=== PATIENT | male | born 1965 | race Caucasian/White ===

== ENCOUNTER 2018-04-22 16:32 | Emergency (ER) | payer OTHER ==
[2018-04-22] MEDS ORDERED: NORMAL SALINE 1000 ML 1,000 ML IV ONE (17:45)
--- NOTE | 2018-04-22 18:24 | ER Document Report ---
ED General - General Chief Complaint: Dizziness Stated Complaint: DIZZINESS/BLURRED VISION Time Seen by Provider: 04/22/18 18:11 TRAVEL OUTSIDE OF THE [place] IN LAST 30 DAYS: No - HPI Notes: 53-year-old male with history of hypertension presents with generalized weakness , lightheadedness, vomiting and diarrhea. Reports having symptoms intermittently since February since he went to [employer]. He believes he is getting heat exhaustion. He has frequent lightheadedness and dizziness. He was a [place] this weekend and symptoms have worsened. He has had 4 days of intermittent vomiting and diarrhea with abdominal cramping. Denies any blood in vomit or stools. Denies any fevers or chills. He has been having headaches and diffuse body aches and cramps. Denies chest pain or shortness of breath. He admits to drinking about 3 shots of vodka daily for the past 10-12 years. He does not check blood pressure at home and has been compliant with medications. No prior abdominal surgeries. He would reports decreased urination with dark urine. No blood in urine or pain with urination. - Related Data Allergies/Adverse Reactions: No Known Allergies Allergy (Verified 04/22/18 23:10) Past Medical History - Social History Smoking Status: Unknown if Ever Smoked Family History: Reviewed & Not Pertinent - Past Medical History Cardiac Medical History: Reports: Hx Hypertension Review of Systems - Review of Systems Notes: Constitutional: Negative for fever. Positive for fatigue and lightheadedness. HENT: Negative for sore throat. Eyes: Negative for visual changes. Cardiovascular: Negative for chest pain. Respiratory: Negative for shortness of breath. Gastrointestinal: Positive for abdominal pain, vomiting or diarrhea. Genitourinary: Negative for dysuria. Positive for decreased urination and dark urine. Musculoskeletal: Negative for back pain. Positive for diffuse abdominal cramping Skin: Negative for rash. Neurological: Positive for headaches, negative for focal weakness or numbness. 10 point ROS negative except as marked above and in HPI. Physical Exam - Vital signs Vitals: Temp Pulse Resp BP Pulse Ox 97.6 F 91 20 72/45 L 100 04/22/18 17:23 04/22/18 17:23 04/22/18 17:23 04/22/18 17:23 04/22/18 17:23 - Notes Notes: PHYSICAL EXAMINATION: GENERAL: Well-appearing, well-nourished and in no acute distress. HEAD: Atraumatic, normocephalic. EYES: Pupils equal round and reactive to light, extraocular movements intact, conjunctiva are normal. ENT: nares patent, oropharynx clear without exudates. Moist mucous membranes. NECK: Normal range of motion, supple without lymphadenopathy LUNGS: Breath sounds clear to auscultation bilaterally and equal. No wheezes rales or rhonchi. HEART: Regular rate and rhythm, no chest wall tenderness . Distant heart sounds ABDOMEN: Soft, mild diffuse abdominal tenderness, normoactive bowel sounds. No guarding, no rebound. No masses appreciated. EXTREMITIES: Normal range of motion, no pitting or edema. No cyanosis. NEUROLOGICAL: Cranial nerves grossly intact. Normal speech, normal gait. Normal sensory and motor exams. PSYCH: Normal mood, normal affect. SKIN: Warm, Dry, normal turgor, no rashes or lesions noted. Course - Re-evaluation Re-evalutation: 04/22/18 18:23 Patient arrived hypotensive, afebrile. No current suspicion for sepsis. Peaked T waves on EKG with first-degree AV block and nonspecific intraventricular conduction delay. Suspicious for acute kidney injury with electronic disturbances possibly from rhabdomyolysis. Labs sent. 04/22/18 20:56 Given Rocephin for leukocytosis with left shift and hypotension of unclear etiology. Cultures sent. Patient in acute renal renal failure with marked elevation in potassium. Immediately given calcium, insulin, glucose, bicarbonate, albuterol, Lasix. Still giving fluids. Immediately called [facility] for transfer. Initially requested hospitalist with nephrology consult for need for emergent dialysis. After about 20 minutes, I received a call back stating that the hospitalist will need me to speak to the electronic prepress system operator first. After about another 20 minutes I discussed with Dr. Arroyo, nephrology. He requested that I speak to the critical care team as patient may not require dialysis after giving medications despite Cr of 12. Repeat EKG does show narrowing of the QRS interval from 114 to 90 with decrease in the amplitude of the T waves. MS interval improving as well. Blood pressure marginal at 98/50 currently. Still getting second liter of fluids. He has vomited once. Still awaiting call from critical care team. 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 No ICU beds. Now on phone with [facility]. 04/22/18 21:23 Patient also accepted by , machine candle molder at [facility]. Awaiting for whichever bed is available first. Patient remains awake and alert with no complaints. Repeat BMP ordered. Lactic acid normal. 04/22/18 22:45 Labs improved. Blood pressure improved with Levophed. Still awaiting a bed. 04/23/18 00:30 Patient accepted at [facility]. Still awaiting transfer. Bedside ultrasound shows slight collapse of RV and IVC with inspiration so fourth liter of fluids ordered. Still on Levophed drip with borderline low blood pressure. - Vital Signs Vital signs: Temp Pulse Resp BP Pulse Ox 98 F 91 16 99/41 L 95 04/23/18 00:00 04/22/18 17:23 04/23/18 00:00 04/23/18 00:00 04/23/18 00:00 - Laboratory Result Diagrams: 04/22/18 17:43 04/22/18 21:30 Laboratory results interpreted by me: 04/22/18 04/22/18 04/22/18 17:43 17:43 21:30 WBC 14.0 H Hgb 17.5 H Hct 51.4 H MCV 104 H MCH 35.5 H RDW 14.1 H Seg Neutrophils % 80.0 H Lymphocytes % 5.3 L Monocytes % 14.3 H Absolute Neutrophils 11.2 H Absolute Monocytes 2.0 H Sodium 127.6 L 127.5 L Potassium 7.8 H* Chloride 82 L 88 L Carbon Dioxide 10 L* 14 L Anion Gap 36 H 26 H BUN 89 H 92 H Creatinine 12.59 H 10.34 H Est GFR ( Amer) 5 L 6 L Est GFR (Non-Af Amer) 4 L 5 L Glucose 127 H Calcium 7.1 L Magnesium 2.9 H Direct Bilirubin 0.7 H AST 61 H Total Protein 8.6 H Urine Protein Urine Glucose (UA) Urine Ketones Urine Blood 04/22/18 22:45 WBC Hgb Hct MCV MCH RDW Seg Neutrophils % Lymphocytes % Monocytes % Absolute Neutrophils Absolute Monocytes Sodium Potassium Chloride Carbon Dioxide Anion Gap BUN Creatinine Est GFR ( Amer) Est GFR (Non-Af Amer) Glucose Calcium Magnesium Direct Bilirubin AST Total Protein Urine Protein 30 H Urine Glucose (UA) 50 H Urine Ketones TRACE H Urine Blood SMALL H Critical Care Note - Critical Care Note Total time excluding time spent on procedures (mins): 60 - Critical care time spent obtaining history from patient or surrogate, discussions with consultants , development of treatment plan with patient or surrogate, evaluation of patient 's response to treatment, examination of patient, ordering and performing treatments and interventions, ordering and review of laboratory studies, re- evaluation of patient's condition, ordering and review of radiographic studies and review of old charts Discharge - Discharge Referrals: JAMILA SEXTON MD [ACTIVE STAFF] - Follow up as needed
--- NOTE | 2018-04-22 18:40 | RADIOLOGY REPORT (SQ) ---
EXAM DESCRIPTION: CHEST SINGLE VIEW COMPLETED DATE/TIME: 04/22/2018 6:22 pm REASON FOR STUDY: hypotension COMPARISON: None. EXAM PARAMETERS: NUMBER OF VIEWS: One view. TECHNIQUE: Single frontal radiographic view of the chest acquired. RADIATION DOSE: NA LIMITATIONS: None. FINDINGS: LUNGS AND PLEURA: No opacities, masses or pneumothorax. No pleural effusion. MEDIASTINUM AND HILAR STRUCTURES: No masses. Contour normal. HEART AND VASCULAR STRUCTURES: Heart normal in size. Normal vasculature. BONES: No acute findings. Old rib fractures. HARDWARE: None in the chest. OTHER: No other significant finding. IMPRESSION: NO ACUTE RADIOGRAPHIC FINDING IN THE CHEST. TECHNICAL DOCUMENTATION: JOB ID: [id number] [employer]- All Rights Reserved Reading location - IP/workstation name: [email or web address]
[2018-04-22 19:11] LABS: ABSOLUTE BASOPHILS # (AUTO) 0.1 10^3/uL (0.0-0.2); ABSOLUTE LYMPHOCYTES (AUTO) 0.7 10^3/uL (0.5-4.7); ABSOLUTE NEUT (AUTO) 11.2 10^3/uL (1.7-8.2); BASOPHILS % (AUTO) 0.4 % (0-2); HEMATOCRIT 51.4 % (37.9-51.0); HEMOGLOBIN 17.5 g/dL (13.5-17.0); LYMPHOCYTES % (AUTO) 5.3 % (13-45); MEAN CORPUSCULAR HEMOGLOBIN 35.5 pg (27.0-33.4); MEAN CORPUSCULAR HGB CONC 34.1 g/dL (32.0-36.0); MEAN CORPUSCULAR VOLUME 104 fl (80-97); MONOCYTES % (AUTO) 14.3 % (3-13); PLATELET COUNT 304 10^3/uL (150-450); RED BLOOD COUNT 4.94 10^6/uL (4.35-5.55); RED CELL DISTRIBUTION WIDTH 14.1 % (11.5-14.0); TOTAL CELLS COUNTED % (AUTO) 100 %
[2018-04-22] MEDS: RINGERS SOLUTION,LACTATED 1,000 ML IV PRN ×2 (19:13→20:36)
[2018-04-22] MEDS ORDERED: CEFTRIAXONE INJ 1000 MG VIAL IV ONE (19:17)
--- NOTE | 2018-04-22 19:31 | EKG REPORT ---
SEVERITY:- ABNORMAL ECG - SINUS RHYTHM FIRST DEGREE AV BLOCK NONSPECIFIC INTRAVENTRICULAR CONDUCTION DELAY BORDERLINE R WAVE PROGRESSION, ANTERIOR LEADS CONSIDER HYPERKALEMIA. : Confirmed by: Navid Neville MD 22-Apr-2018 19:31:27
[2018-04-22 19:33] LABS: ALANINE AMINOTRANSFERASE 26 U/L (21-72); ALKALINE PHOSPHATASE 105 U/L (38-126); ASPARTATE AMINO TRANSFERASE 61 U/L (17-59); BILIRUBIN,DIRECT 0.7 mg/dL (0.0-0.4); BILIRUBIN,TOTAL 0.7 mg/dL (0.2-1.3); BLOOD UREA NITROGEN 89 mg/dL (7-20); CALCIUM 8.7 mg/dL (8.4-10.2); CREATINE KINASE 118 U/L (55-170); GLUCOSE 89 mg/dL (75-110); TOTAL PROTEIN 8.6 g/dL (6.3-8.2)
[2018-04-22 19:39] LABS: CHLORIDE 82 mmol/L (98-107); SODIUM 127.6 mmol/L (137-145)
[2018-04-22 19:44] LABS: ANION GAP 36 (5-19)
[2018-04-22 19:48] LABS: POTASSIUM 7.8 mmol/L (3.6-5.0)
[2018-04-22 19:49] LABS: CARBON DIOXIDE 10 mmol/L (22-30)
[2018-04-22] MEDS ORDERED: INSULIN REG, HUMAN 100 UNIT/ML 3 ML VIAL (PYX) IV ONE (19:50)
[2018-04-22] MEDS ORDERED: SODIUM POLYSTYRENE SULFONATE 15 GM/60 ML NG ONE (19:50)
[2018-04-22] MEDS ORDERED: DEXTROSE 50%-WATER 25 GM/50 ML DISP.SYRIN IV ONE (19:50)
[2018-04-22] MEDS ORDERED: CALCIUM GLUCONATE 1000 MG/10 ML INJ IV ONE (19:50)
[2018-04-22] MEDS ORDERED: SODIUM BICARBONATE 8.4% INJ 50 MEQ/50 ML DISP.SYRIN IV ONE (19:51)
[2018-04-22] MEDS ORDERED: ALBUTEROL SULFATE 0.083% NEB 2.5 MG/3 ML AMPUL NEB ONE ×2 (19:53→21:54)
[2018-04-22] MEDS ORDERED: DEXTROSE 5%-WATER 1000 ML 1,000 ML with SODIUM BICARBONATE 150 MEQ IV PRN ×2 (19:58)
[2018-04-22] MEDS ORDERED: FUROSEMIDE INJ/PF 40 MG/4 ML SDV IV ONE (20:03)
[2018-04-22] MEDS ORDERED: METOCLOPRAMIDE HCL INJ/PF 10 MG/2 ML SDV IV ONE (20:04)
[2018-04-22] MEDS ORDERED: INSULIN REG, HUMAN 100 UNIT/ML 3 ML VIAL (PYX) ONE (21:18)
[2018-04-22] MEDS ORDERED: DEXTROSE 5%-WATER 250 ML with NOREPINEPHRINE BITARTRATE 4 MG IV PRN ×2 (21:42)
[2018-04-22] MEDS ORDERED: NOREPINEPHRINE BITARTRATE INJ/PF 4 MG/4 ML SDV IV ONE (21:43)
[2018-04-22 22:10] LABS: BLOOD UREA NITROGEN 92 mg/dL (7-20); GLUCOSE 127 mg/dL (75-110)
[2018-04-22 22:15] LABS: CARBON DIOXIDE 14 mmol/L (22-30); CHLORIDE 88 mmol/L (98-107); SODIUM 127.5 mmol/L (137-145)
[2018-04-22 22:25] LABS: CALCIUM 7.1 mg/dL (8.4-10.2)
[2018-04-22 22:27] LABS: ANION GAP 26 (5-19); POTASSIUM 4.7 mmol/L (3.6-5.0)
[2018-04-22 23:11] LABS: APPEARANCE,URINE SLIGHTLY-CLOUDY; BILIRUBIN,URINE NEGATIVE (NEGATIVE); COLOR,URINE YELLOW; GLUCOSE, URINE 50 mg/dL (NEGATIVE); KETONES,URINE TRACE mg/dL (NEGATIVE); LEUKOCYTE ESTERASE,URINE NEGATIVE (NEGATIVE); NITRITE,URINE NEGATIVE (NEGATIVE); PROTEIN,URINE 30 mg/dL (NEGATIVE); UROBILINOGEN,URINE NEGATIVE mg/dL (<2.0)
[2018-04-23] MEDS ORDERED: RINGERS SOLUTION,LACTATED 1,000 ML IV ONE (00:29)
--- NOTE | 2018-04-23 02:08 | ER Document Report ---
Doctor's Note Notes: 04/23/18 02:07 This 53 yo male presented with acute renal failure, hypotension and hyperkalemia. His care was transitioned to ms after sign out, reevaluated the patient, he is responded well to Levophed, currently at 14 mics. Patient is received 4 L of fluid including 2 L of lactated Ringer's. His hemodynamics have improved, his blood pressure has been greater than 100 systolic consistently over the last hour. Current plan will be for this patient to be air lifted to [facility] is multiple ground [facility] have been unable to obtain appropriate transport for this gentleman over the last 4 hours, believe it is best interest at this time to be transition to a higher level of care.
[2018-04-23 02:26] VITALS: BP 120/60
--- NOTE | 2018-04-23 07:43 | EKG REPORT ---
SEVERITY:- ABNORMAL ECG - SINUS RHYTHM FIRST DEGREE AV BLOCK BORDERLINE R WAVE PROGRESSION, ANTERIOR LEADS : Confirmed by: Navid Neville MD 23-Apr-2018 07:42:37
== END 2018-04-23 02:42 | disposition short-term general hospital (02) ==
LOC: ER 16:32
DX: E87.5 Hyperkalemia (principal); N17.9 Acute kidney failure, unspecified; D72.829 Elevated white blood cell count, unspecified; I95.9 Hypotension, unspecified; I10 Essential (primary) hypertension
CPT/HCPCS: 93005; 94640 ×2; 99291; 96361; 96375; 96365; 96366; 96367; 36415; 87040; 82550; 83735; 85025; 80048; 80053; 81001; 84484; 83605; 71045; 93010; J0610; J3490 ×3; J1940; J2765; J1815; J0696; J7060 ×2; J7030; J7120 ×2